=== PATIENT | male | born 1995 | race Caucasian/White ===

== ENCOUNTER 2018-12-13 12:33 | Outpatient (CLI) | payer OTHER | END 2018-12-13 12:34 | disposition home or self-care (01) | LOC: SONOGRAMA 12:33 → MAMO-SONO 13:15 | DX: N50.812 Left testicular pain (principal) ==

== ENCOUNTER → 2019-01-08 | Outpatient (CLI) | payer OTHER | END | disposition home or self-care (01) | LOC: MAMO-SONO 12:51 → SONOGRAMA 12:51 → MAMO-SONO 13:15 | DX: E04.2 Nontoxic multinodular goiter (principal) ==

== ENCOUNTER 2020-02-21 07:43 | Outpatient (CLI) | payer OTHER | END 2020-02-21 07:57 | disposition home or self-care (01) | LOC: SONOGRAMA 07:43 → MAMO-SONO 07:45 → SONOGRAMA 07:57 | PROVIDERS: ATTEND Internal Medicine Endocrinology, Diabetes & Metabolism | DX: E04.2 Nontoxic multinodular goiter (principal); K76.0 Fatty (change of) liver, not elsewhere classified; R10.84 Generalized abdominal pain ==